=== PATIENT | male | born 1970 | race Caucasian/White ===

== ENCOUNTER 2019-01-01 10:03 | Emergency (ER) ==
[2019-01-01 10:11] VITALS: BP 141/83; TEMP 98.9; BMI 34.6
--- NOTE | 2019-01-01 11:21 | CT ---
EXAM: CT of the abdomen pelvis without contrast History: Left lower quadrant abdominal pain. Technique: Multiplanar CT images through the abdomen pelvis were obtained without the administration of IV contrast Findings: Lung bases are clear. No acute osseous abnormalities. Bilateral L5 pars defects with gra de 1 spondylolisthesis of L5 on S1. No renal stones and no hydronephrosis. No gallstones identified by CT. No focal liver or splenic le sions. Small hiatal hernia. No peripancreatic inflammation. Adrenal glands are unremarkable. No b owel obstruction. No bladder wall thickening. Prostate is not enlarged. No perirectal inflammation . There is short segment wall thickening of the sigmoid colon with adjacent inflammation and phlegmo nous change and foci of localized extraluminal air. Colonic diverticulosis. Impression: 1. Acute perforated diverticulitis of the sigmoid colon with phlegmonous change and probable develop ing abscess. 2. The wall thickening of the sigmoid colon is most likely reactive. Follow-up is recommended after treatment of the acute condition to document resolution and exclude any underlying neoplastic etiolo gy. 3. Small hiatal hernia. 4. Bilateral L5 pars defects with grade 1 spondylolisthesis
[2019-01-01] MEDS ORDERED: UNASYN 3 GM in SODIUM CHLORIDE 100 ML IV STA (11:29)
[2019-01-01] MEDS ORDERED: FLAGYL 500 MG/100 ML 500 MG in PREMIX 100 ML NS 1 BAG IV STA (11:30)
--- NOTE | 2019-01-01 11:34 | ED.PDOC ---
General ED Provider: Dr. TINO VYAS Chief Complaint: Abdominal Pain Stated Complaint: abdominal pain Time Seen by Physician: 10:10 Mode of Arrival: Walk-In Information Source: Patient Exam Limitations: No limitations Nursing and Triage Documentation Reviewed and Agree: Yes Does patient meet sepsis criteria?: No System Inflammatory Response Syndrome: Not Applicable Sepsis Protocol: For patient's 13 years and over: Temp is 96.8 and below OR 101 and greater Pulse >90 BPM Resp >20/minute Acutely Altered Mental Status Are patient's symptoms suggestive of a new infection, such as: -Pneumonia -Skin, Soft Tissue -Endocarditis -UTI -Bone, Joint Infection -Implantable Device -Acute Abdominal Infection -Wound Infection -Meningitis -Blood Stream Catheter Infection -Unknown GI Complaint Exam - Abdominal Pain Complaint/Exam Onset: Gradual Duration: 9 days Symptoms Are: Still present Timing: Constant Initial Severity: Moderate Current Severity: Moderate Location of Pain: LLQ Radiates To: Reports: LLQ Character: Reports: Throbbing, Cramping Aggravating: Reports: Food, Position Alleviating: Reports: Rest, Position Associated Signs and Symptoms: Denies: Diaphoresis, Fever, Cough, Chest pain, Dizziness, Back pain, Constipation, Blood in stool, Dysuria, Urinary frequency, Decreased urine output, Decreased appetite, Discharge, Nausea, Vomiting, Diarrhea, Decreased activity AAA Risk Factors: Reports: None Cardiac Risk Factors: Reports: None Testicular Torsion Risk Factors: Reports: None Surgical Obstruction Risk Factors: Reports: None Related Surgical History: Reports: None Abdominal Findings: Present: None Differential Diagnoses: Appendicitis, Bowel Obstruction, Constipation, Gastroenteritis, Pancreatitis, Irritable Bowel Syndrome, Pneumonia, Renal Colic , Ureteral Stone Quality Indicator For Non-Traumatic Chest Pain/Syncope: EKG Performed Review of Systems - Review Of Systems Constitutional: Reports: No symptoms Eyes: Reports: No symptoms Ears, Nose, Mouth, Throat: Reports: No symptoms Respiratory: Reports: No symptoms Cardiac: Reports: No symptoms GI: Reports: Abdominal pain : Reports: No symptoms Musculoskeletal: Reports: No symptoms Skin: Reports: No symptoms Neurological: Reports: No symptoms Endocrine: Reports: No symptoms Hematologic/Lymphatic: Reports: No symptoms All Other Systems: Reviewed and Negative Past Medical History - Past Medical History Previously Healthy: Yes Endocrine: Reports: None Cardiovascular: Reports: None Respiratory: Reports: None Hematological: Reports: None Gastrointestinal: Reports: None Genitourinary: Reports: None Neuro/Psych: Reports: None Musculoskeletal: Reports: None Cancer: Reports: None - Surgical History General Surgical History: Reports: None - Family History Family History: Reports: None - Social History Smoking Status: Former smoker Hx Substance Use: No Alcohol Screening: None - Immunizations Tetanus Shot up to Date: No Physical Exam - Physical Exam Appearance: Well-appearing, No pain distress, Well-nourished Eyes: JOSHUA, EOMI, Conjunctiva clear ENT: Ears normal, Nose normal, Oropharynx normal Respiratory: Airway patent, Breath sounds clear, Breath sounds equal, Respirations nonlabored Cardiovascular: RRR, Pulses normal, No rub, No murmur GI/: Tender (LLQ) Musculoskeletal: Normal strength, ROM intact, No edema, No calf tenderness Skin: Warm, Dry, Normal color Neurological: Sensation intact, Motor intact, Reflexes intact, Cranial nerves intact, Alert, Oriented Psychiatric: Affect appropriate, Mood appropriate Physician Notification - Case Discussed Physician Notified: BECCA Stanley Time of Notification: 11:48 Critical Care Note - Critical Care Note Total Time (mins): 0 Course - Course Hematology/Chemistry: 01/01/19 10:40 01/01/19 10:40 Orders, Labs, Meds: Lab Review 01/01/19 01/01/19 01/01/19 10:40 10:40 10:40 WBC 9.95 RBC 4.87 Hgb 14.4 Hct 42.1 MCV 86.4 MCH 29.6 MCHC 34.2 RDW Coeff of [place] 12.0 Plt Count 346 Immature Gran % (Auto) 0.4 Neut % (Auto) 67.3 Lymph % (Auto) 22.7 [place] % (Auto) 8.3 Eos % (Auto) 1.0 Baso % (Auto) 0.3 Immature Gran # (Auto) 0.0 Neut # (Auto) 6.7 Lymph # (Auto) 2.3 [place] # (Auto) 0.8 Eos # (Auto) 0.1 Baso # (Auto) 0.0 PT 9.9 INR 0.99 APTT 24.7 Sodium 137.6 Potassium 3.83 Chloride 100.9 Carbon Dioxide 26.5 Anion Gap 14.03 BUN 11.9 Creatinine 1.15 H Estimated GFR (MDRD) 68.00 BUN/Creatinine Ratio 10.34 Glucose 111.0 H Calcium 9.54 Total Bilirubin 0.70 AST 26.4 ALT 31.7 Alkaline Phosphatase 120.9 Total Protein 8.00 Albumin 4.32 Globulin 3.68 Albumin/Globulin Ratio 1.17 Amylase 38.8 Orders Category Date Time Status AMYLASE Stat LAB 01/01/19 10:40 Completed BLOOD CULTURE (ED ONLY) Stat LAB 01/01/19 11:29 Ordered CBC W/ AUTO DIFF Stat LAB 01/01/19 10:40 Completed COMPREHENSIVE METABOLIC PANEL Stat LAB 01/01/19 10:40 Completed LACTIC ACID Stat LAB 01/01/19 11:29 Ordered PARTIAL THROMBOPLASTIN TIME Stat LAB 01/01/19 10:40 Completed PROCALCITONIN Stat LAB 01/01/19 10:40 Received PT WITH INR Stat LAB 01/01/19 10:40 Completed URINALYSIS C & S IF INDICATED Stat LAB 01/01/19 11:39 Ordered Ampicillin Sodium/Sulbactam Na [Unasyn] 3 gm MEDS 01/01/19 11:29 Active 0.9 % Sodium Chloride [Sodium Chloride] 100 ml IV ONCE Metronidazole/Sodium Chloride [Flagyl 500 mg/100 ml] MEDS 01/01/19 11:30 Active 500 mg Premix 100 ml Ns [address] ABDOMEN/PELVIS WO CONTRAST Stat RADS 01/01/19 10:31 Completed Medications Generic Name Dose Route Start Last Admin Trade Name Freq PRN Reason Stop Dose Admin Ampicillin Sodium/Sulbactam 100 mls @ 100 mls/hr 01/01/19 11:29 Sodium 3 gm/ Sodium Chloride IV 01/01/19 12:28 ONCE STA Metronidazole 500 mg/ Sodium 100 mls @ 100 mls/hr 01/01/19 11:30 Chloride IV 01/01/19 12:29 ONCE STA Vital Signs: Temp Pulse Resp BP Pulse Ox 01/01/19 10:03 98.9 F 112 H 20 141/83 H 97 Departure - Departure Time of Disposition: 11:48 (TRANSFER NOW) Disposition: TSF SHORT-TRM HOSP Discharge Problem: Abdominal pain Diverticulitis of intestine Qualifiers: Diverticulitis site: large intestine Diverticulitis bleeding: without bleeding Diverticulitis complication: with abscess Qualified Code(s): K57.20 - Diverticulitis of large intestine with perforation and abscess without bleeding Instructions: Diverticulitis (ED) Condition: Good Pt referred to PMD for follow-up: Yes IPMP verified?: No Allergies/Adverse Reactions: Allergies peanut Adverse Reaction (Verified 01/01/19 10:19) Home Medications: Ambulatory Orders Omeprazole [Prilosec] 20 mg PO QDAC 04/04/14 Vitamin B-1 [Thiamine] 100 mg PO DAILY #1 tablet 04/06/14 Disposition Discussed With: Patient
[2019-01-01] MEDS ORDERED: UNASYN ONE (11:51)
[2019-01-01] MEDS ORDERED: ZOFRAN 4 MG/2 ML IVP STA (12:33)
[2019-01-01] MEDS ORDERED: MORPHINE 4 MG/ML SYRINGE IVP STA (12:33)
== END 2019-01-01 12:48 | disposition short-term general hospital (02) ==
LOC: ED 10:03
DX: K57.20 Diverticulitis of large intestine with perforation and abscess without bleeding (principal); R10.9 Unspecified abdominal pain
CPT/HCPCS: 36415; 80053; 81001; 82150; 83605; 84145; 85025; 85610; 85730; 87040; 93005; 93010; 96365; 96375; 99285

== ENCOUNTER 2019-01-01 12:48 | Outpatient (CLI) ==
[2019-01-01 10:11] VITALS: BMI 34.6
== END 2019-01-01 13:11 | disposition short-term general hospital (02) ==
LOC: AMBL 12:48
PROVIDERS: ATTEND Internal Medicine
DX: R10.9 Unspecified abdominal pain (principal); K57.20 Diverticulitis of large intestine with perforation and abscess without bleeding